=== PATIENT | male | born 1975 | race Two or more races ===

== ENCOUNTER 2020-03-09 10:31 | Outpatient (CLI) | payer MEDICAID ==
[~2020-03-09] VITALS: Ht 172.7 cm; Wt 108.0 kg
[2020-03-09 10:58] VITALS: BP 116/72
[2020-03-09] MEDS ORDERED: XARELTO10 MG ORAL (15:37)
[2020-03-09] MEDS ORDERED: SIMVASTATIN40 MG ORAL (15:37)
[2020-03-09] MEDS ORDERED: XALKORI250 MG ORAL (15:37)
[2020-03-09] MEDS ORDERED: FOLIC ACID1 MG ORAL (15:37)
[2020-03-09] MEDS ORDERED: METFORMIN HCL1000 M1 ORAL (15:37)
[2020-03-09] MEDS ORDERED: METOPROLOL SUCC50 MG ORAL (15:37)
--- NOTE | 2020-03-09 17:30 | Consultation ---
DATE OF CONSULTATION: 03/09/2020 CONSULTING PHYSICIAN: Osmel Menjivar MD. CHIEF COMPLAINT: Abdominal pain. HISTORY OF PRESENT ILLNESS: The patient is very pleasant unfortunate 45-year-old male with a history of lung cancer, status post chemotherapy, presents with complaint of persistent abdominal bloating and distention and pain. PAST MEDICAL HISTORY: 1. Diabetes. 2. Hypertension. 3. Hypercholesterolemia. 4. Lung cancer. PAST SURGICAL HISTORY: He had a history of head injury at age 13, which required biopsy. MEDICATIONS: Please see medication reconciliation list. SOCIAL HISTORY: The patient drinks socially. He used to smoke, quit few years ago. No IV drug abuse. ALLERGIES: No known allergies. REVIEW OF SYSTEMS: Positive for abdominal bloating and pain. PHYSICAL EXAMINATION: VITAL SIGNS: Temperature 98, blood pressure 116/72, pulse 70, respirations 20. HEENT: Normocephalic and atraumatic. Sclerae are anicteric. NECK: Supple. No evidence of obvious lymphadenopathy. CARDIOVASCULAR: Regular rate and rhythm. Plus S1-S2. LUNGS: Clear to auscultation bilaterally. ABDOMEN: Positive bowel sounds. Soft and nontender. Mildly distended. No rebound. No guarding. No peritoneal sign. EXTREMITIES: No cyanosis. No clubbing. No edema. ASSESSMENT: This is a 45-year-old male with persistent abdominal bowel distention. Differential diagnosis would be ascites, liver disease, and SIBO. PLAN: I ordered abdominal ultrasound. Ordered Align one tablet p.o. daily. The patient to come back after abdominal ultrasound for followup. Osmel Menjivar M.D. DR: ALYSON JOB#: [id number] CC:
== END 2020-03-09 13:43 | disposition home or self-care (01) ==
LOC: PAN 10:31
DX: R14.0 Abdominal distension (gaseous) (principal); E11.9 Type 2 diabetes mellitus without complications; I10 Essential (primary) hypertension; E78.00 Pure hypercholesterolemia, unspecified; Z85.118 Personal history of other malignant neoplasm of bronchus and lung; Z87.891 Personal history of nicotine dependence
CPT/HCPCS: G0463